=== PATIENT | female | born 1950 | race Caucasian/White ===

== ENCOUNTER 2019-04-27 06:25 | Emergency (ER) | payer OTHER, MEDICAID ==
[~2019-04-27] VITALS: Ht 160 cm; Wt 79.4 kg
[2019-04-27 06:29] VITALS: BP 154/85
--- NOTE | 2019-04-27 06:29 | NUR ---
TO BED # 12 AMBULATORY
--- NOTE | 2019-04-27 06:44 | NUR ---
PT CAME TO ER C/O PAINFUL URINATION SINCE FRIDAY. PAIN LEVEL 8/10, BURNING AND HESISTANCY. PT ALSO C/O OF SCIATIC NERVE PAIN RADIATIATING FROM LEFT FLANK DOWN TO CALF. SEEN IN [facility] LAST WEEK FOR SCIATIC PAIN. DENIES N/V/D. NO FEVER. SAFETY MEASURES IN PLACE. WILL CONTINUE TO MONITOR.
--- NOTE | 2019-04-27 07:11 | NUR ---
REPORT RECIEVED FROM MORRO ROGER. PT [id number].
[2019-04-27 07:14] LABS: APPEARANCE,URINE CLEAR (CLEAR); BILIRUBIN,URINE NEGATIVE (NEGATIVE); BLOOD, URINE TRACE-L (NEGATIVE); COLOR,URINE YELLOW (YELLOW); LEUKOCYTE ESTERASE ,URINE 1+ (NEGATIVE); NITRITE, URINE NEGATIVE (NEGATIVE); PH,URINE 6.5 (5.0-9.0); UGLUCOSE NEGATIVE (NEGATIVE)
--- NOTE | 2019-04-27 07:18 | NUR ---
dr bermudez at bedside
[2019-04-27 07:22] LABS: RBC,URINE 0-5 /HPF (0-5); WBC,URINE 0-5 /HPF (0-5)
[2019-04-27] MEDS ORDERED: cefTRIAXone 1,000 MG in LIDOCAINE 1% ***ER ONLY *** 2.1 ML IM ONE (07:25)
[2019-04-27] MEDS ORDERED: KETOROLAC 60 MG/2 ML VIAL IM ONE (07:25)
[2019-04-27] MEDS ORDERED: cefTRIAXone 1,000 MG VIAL ONE (07:42)
[2019-04-27] MEDS ORDERED: LIDOCAINE MPF 1% - 5 mL VIAL 5 ML ONE (07:44)
[2019-04-27 07:51] VITALS: BP 150/84
--- NOTE | 2019-04-27 07:51 | NUR ---
Patient discharged with v/s stable. Written and verbal after care instructions given and explained. Patient alert, oriented and verbalized understanding of instructions. Ambulatory with steady gait. All questions addressed prior to discharge. ID band removed. Patient advised to follow up with PMD. Rx of tramadol hydrochloride and levaquin given. Patient educated on indication of medication including possible reaction and side effects. Opportunity to ask questions provided and answered.
== END 2019-04-27 07:51 | disposition home or self-care (01) ==
LOC: MED 06:25
DX: N30.90 Cystitis, unspecified without hematuria (principal); I10 Essential (primary) hypertension; Z88.0 Allergy status to penicillin
CPT/HCPCS: 81001; 87086; 96372; 99283; J0696; J1885; J2001

== ENCOUNTER 2020-09-03 21:35 | Emergency (ER) | payer OTHER, MEDICAID ==
[~2020-09-03] VITALS: Ht 160 cm; Wt 83.9 kg
--- NOTE | 2020-09-03 21:40 | NUR ---
70 YO F BIB SELF WITH C/C OF VOMITTING SINCE 3PM AND ABD PAIN /, PT STATES "ALL MY STOMACH HURTS". PT DENIES TAKING MEDICATION FOR PAIN. VOMITTING IS CLEAR AND FLEM-LIKE. HAD A PERIOD OF VOMMITING WHILE IN ROOM WITH PT, ABOUT 60 CC. PT HAS NAUSEA. BOWEL SOUNDS ARE HYPOACTIVE X4 QUADS, TENDER TO TOUCH, ROUND AND NON DISTENDED. MUCUS MEMBRANES MOIST. BED IS LOCKED IN LOWEST POSITION, PT ON REHABILITATION SERVICES AIDE AND PULSE OX. SIDE RAILS X2. HX: HTN RX: LOSARTAN, AMLODIPINE, AND NITROFURIATOIN (LAST TAKEN THIS MORNING) ALLERGIES: PENICILLIN, OXYTETRACYCLINE
--- NOTE | 2020-09-03 21:56 | NUR ---
ERMD AT BEDSIDE EVALUATING PT
[2020-09-03] MEDS ORDERED: NACL 0.9% 1,000 ML IV ONE (22:00)
[2020-09-03] MEDS ORDERED: MORPHINE SULFATE 2 MG/ML SYR IVP ONE (22:00)
[2020-09-03] MEDS ORDERED: PANTOPRAZOLE 40 MG INJ VIAL IVP ONE (22:00)
[2020-09-03] MEDS ORDERED: ONDANSETRON 4 MG/2 ML VIAL IVP ONE (22:00)
--- NOTE | 2020-09-03 22:13 | NUR ---
ekg at bedside
--- NOTE | 2020-09-03 22:15 | NUR ---
LABS COLLECTED AND SENT TO LAB
[2020-09-03 22:18] LABS: BASOPHILS # (AUTO) 0.1 K/uL (0.00-0.22); BASOPHILS % (AUTO) 0.6 % (0.0-2.0); EOSINOPHILS % (AUTO) 0.3 % (0.0-4.0); HEMATOCRIT 39.1 % (36-48); HEMOGLOBIN 13.5 g/dL (12.0-16.0); LYMPHOCYTES # (AUTO) 1.2 K/uL (2.5-16.5); LYMPHOCYTES % (AUTO) 14.1 % (20.5-51.1); MEAN CORPUSCULAR HEMOGLOBIN 32 pg (27-31); MEAN CORPUSCULAR HGB CONC 34 g/dL (33-37); MEAN CORPUSCULAR VOLUME 93.3 fL (80-94); MONOCYTES # (AUTO) 0.2 K/uL (0.8-1.0); MONOCYTES % (AUTO) 2.3 % (1.7-9.3); NEUTROPHILS % (AUTO) 82.7 % (42.2-75.2); PLATELET COUNT (AUTO) 284 K/uL (140-450); RED BLOOD CELL COUNT(AUTO) 4.19 MIL/uL (4.20-5.40); RED CELL DISTRIBUTION WIDTH 15.5 % (11.6-13.7); WHITE BLOOD COUNT (AUTO) 8.5 K/uL (4.8-10.8)
[2020-09-03 22:33] LABS: ALBUMIN 3.8 g/dL (3.4-5.0); ANION GAP 17.9 (8-16); CARBON DIOXIDE 23.2 mmol/L (21-32); CREATININE 0.9 mg/dL (0.6-1.3); POTASSIUM 3.1 mmol/L (3.5-5.1); TOTAL BILIRUBIN 0.8 mg/dL (0.0-1.0)
[2020-09-03] MEDS ORDERED: CLONIDINE HYDROCHLORIDE 0.1 MG TAB PO ONE (23:00)
--- NOTE | 2020-09-03 23:15 | NUR ---
ASSISTED PT TO RR, STEADY GAIT.
--- NOTE | 2020-09-03 23:18 | NUR ---
ASSISTED PT BACK TO BED FROM RR, STEADY GAIT. CALLED RAD TO NOTIFY THAT PT IS READY.
--- NOTE | 2020-09-03 23:25 | NUR ---
TAKEN TO CT VIA WHEEL CHAIR.
--- NOTE | 2020-09-03 23:50 | NUR ---
ASSISTED PT TO RR, STEADY GAIT.
--- NOTE | 2020-09-03 23:53 | NUR ---
PT ASSISTED BACK TO BED FROM RR. PT BACK ON [employer] HEAD FORMER AND PULSE OX. BED LOCKED IN LOWEST POSITION, SIDE RAILS X2.
[2020-09-03] MEDS ORDERED: KETOROLAC 30 MG/ML VIAL IVP ONE (23:55)
[2020-09-04] MEDS ORDERED: PROCHLORPERAZINE 10 MG/2 ML VIAL IVP ONE (00:25)
--- NOTE | 2020-09-04 00:26 | NUR ---
LAB REPORTED LACTIC ACID 3.2, REPORTED TO ERMD.
--- NOTE | 2020-09-04 00:51 | NUR ---
PT GRANTED PERMISSION TO GIVE DAUGHTER MEDICAL INFO.
--- NOTE | 2020-09-04 01:00 | NUR ---
PT PLACED ON 2L NC DUE TO DESAT TO 86%
[2020-09-04 01:30] LABS: APPEARANCE,URINE CLEAR (CLEAR); BILIRUBIN,URINE NEGATIVE (NEGATIVE); BLOOD, URINE TRACE-I (NEGATIVE); COLOR,URINE YELLOW (YELLOW); LEUKOCYTE ESTERASE ,URINE NEGATIVE (NEGATIVE); NITRITE, URINE NEGATIVE (NEGATIVE); UGLUCOSE TRACE (NEGATIVE)
[2020-09-04 01:39] LABS: BARBITURATE, URINE NEGATIVE ng/ml (NEG <=200); BENZODIAZEPINE, URINE NEGATIVE ng/mL (NEG <=200); CANNABINOID, URINE POSITIVE ng/mL (NEG <=50); COCAINE, URINE NEGATIVE ng/mL (NEG <=300); OPIATE, URINE POSITIVE ng/mL (NEG <=2000); PHENCYCLIDINE SCREEN,URINE NEGATIVE ng/mL (NEG <=25)
[2020-09-04 01:44] LABS: WBC,URINE 0-5 /HPF (0-5)
--- NOTE | 2020-09-04 02:00 | NUR ---
PT ASLEEP IN BED. BED LOCKED AND IN LOWEST POSITION. EQUAL CHEST RISE AND FALL. BED LOCKED AND IN LOWEST POSITION. STRATEGIC COMMUNICATIONS MANAGER AND PULSE OX IN PLACE.
--- NOTE | 2020-09-04 02:52 | NUR ---
CELINE MADE AWARE OF POTASSIUM OF 3.1 AT DISCHARGE. STATES HE WILL WRITE A RX FOR K.
[2020-09-04 03:06] VITALS: BP 168/86
--- NOTE | 2020-09-04 03:06 | NUR ---
Patient discharged with v/s stable. Written and verbal after care instructions given and explained. Patient alert, oriented and verbalized understanding of instructions. Ambulatory with steady gait. All questions addressed prior to discharge. ID band removed. Patient advised to follow up with PMD. Rx of POTASSIUM, ZOFRAN, PROTONIX given. Patient educated on indication of medication including possible reaction and side effects. Opportunity to ask questions provided and answered.
== END 2020-09-04 03:06 | disposition home or self-care (01) ==
LOC: MED 21:35
DX: R10.30 Lower abdominal pain, unspecified (principal); R11.2 Nausea with vomiting, unspecified; R51.9 Headache, unspecified; I10 Essential (primary) hypertension; Z88.0 Allergy status to penicillin; Z88.8 Allergy status to other drugs, medicaments and biological substances
CPT/HCPCS: 36415; 36600; 74176; 80053; 80305; 81001; 82009; 82803; 83605; 83690; 84484; 85025; 93005; 96361; 96374; 96375; 99285; C9113; G0482; J0780; J1885; J2270; J2405; J7030

== ENCOUNTER 2020-11-01 09:11 | Emergency (ER) | payer OTHER, MEDICAID ==
[~2020-11-01] VITALS: Ht 165.1 cm; Wt 54.9 kg
[2020-11-01 09:18] VITALS: BP 105/77
[2020-11-01] MEDS ORDERED: ONDANSETRON 4 MG ODT PO ONE (09:30)
--- NOTE | 2020-11-01 09:30 | NUR ---
PT TO ER BED 12
--- NOTE | 2020-11-01 09:39 | NUR ---
70 Y/F PRESENTS TO ED C/O PROFUSE VOMITING/NAUSEA SINCE LAST NIGHT, PATIENT STATES SHE HAS BEEN HAVING HEARTBURN FOR THE LAST FEW DAYS. ALSO HAVING 10/10 LOW ABDOMINAL PAIN. NO DIARRHEA, PT STATES SHE IS CONSTIPATED. LAST BM WAS THIS MORNING. DENIES DYSURIA, HEMATURIA. REPORTS LOSS OF APPETITE. ABD SOFT, NON DISTENDED. BS ACTIVE X 4 PMH: HTN, ARTHRITIS ALLERGIES: PENICILLINS OXYTETRACYCLINE
--- NOTE | 2020-11-01 09:39 | NUR ---
DR. MAURER AT BEDSIDE.
[2020-11-01] MEDS ORDERED: KETOROLAC 60 MG/2 ML VIAL IM ONE (09:45)
[2020-11-01] MEDS ORDERED: NACL 0.9% 1,000 ML IV ONE (10:35)
[2020-11-01] MEDS ORDERED: ONDANSETRON 4 MG/2 ML VIAL IVP ONE (10:35)
[2020-11-01] MEDS ORDERED: MORPHINE SULFATE 4 MG/ML SYR IVP ONE (11:10)
[2020-11-01 13:40] VITALS: BP 108/52
--- NOTE | 2020-11-01 13:41 | NUR ---
Patient discharged with v/s stable. Written and verbal after care instructions given and explained. Patient alert, oriented and verbalized understanding of instructions. Ambulatory with steady gait. All questions addressed prior to discharge. ID band removed. Patient advised to follow up with PMD. Rx of NORCO, MOTRIN, ZOFRAN given. Patient educated on indication of medication including possible reaction and side effects. Opportunity to ask questions provided and answered.
--- NOTE | 2020-11-02 10:19 | NUR ---
LATE ENTRY -- NS INFUSION COMPLETED AT 7319 11/01
== END 2020-11-01 13:41 | disposition home or self-care (01) ==
LOC: MED 09:11
DX: R10.30 Lower abdominal pain, unspecified (principal); R11.2 Nausea with vomiting, unspecified; I10 Essential (primary) hypertension; Z88.0 Allergy status to penicillin; Z88.1 Allergy status to other antibiotic agents
CPT/HCPCS: 81002; 96361; 96372; 96374; 96375; 99284; J1885; J2270; J2405; J7030; Q0162

== ENCOUNTER 2020-11-03 13:05 | Emergency (ER) | payer OTHER, MEDICAID ==
--- NOTE | 2020-11-03 13:17 | NUR ---
PATIENT LEFT WITHOUT BEING TRIAGED. NO FURTHER CARE PROVIDED FOR PATIENT.
== END 2020-11-03 13:17 | disposition left against medical advice (07) ==
LOC: MED 13:05
DX: R11.2 Nausea with vomiting, unspecified (principal); Z53.21 Procedure and treatment not carried out due to patient leaving prior to being seen by health care provider

== ENCOUNTER 2020-11-03 17:09 | Emergency (ER) | payer OTHER, MEDICAID ==
[~2020-11-03] VITALS: Ht 160 cm; Wt 77.1 kg
[2020-11-03 17:28] VITALS: BP 137/65
--- NOTE | 2020-11-03 17:30 | NUR ---
C/O VAGINAL BLEEDING, LOWER ABDOMINAL PAIN X YESTERDAY. SEEN HERE 2 DAYS AGO FOR N/V & ABDOMINAL PAIN . PMH: HTN,ARTHRITIS, PARTIAL HYSTERECTOMY
--- NOTE | 2020-11-03 17:34 | NUR ---
SIMONE. HANDED ON URINE CUP.
[2020-11-03 18:21] LABS: BASOPHILS # (AUTO) 0.1 K/uL (0.00-0.22); BASOPHILS % (AUTO) 0.7 % (0.0-2.0); EOSINOPHILS # (AUTO) 0.1 K/uL (0-0.4); EOSINOPHILS % (AUTO) 1.1 % (0.0-4.0); HEMATOCRIT 35.7 % (36-48); HEMOGLOBIN 12.2 g/dL (12.0-16.0); LYMPHOCYTES # (AUTO) 2.3 K/uL (2.5-16.5); LYMPHOCYTES % (AUTO) 26.7 % (20.5-51.1); MEAN CORPUSCULAR HEMOGLOBIN 33 pg (27-31); MEAN CORPUSCULAR HGB CONC 34 g/dL (33-37); MEAN CORPUSCULAR VOLUME 97.1 fL (80-94); MONOCYTES # (AUTO) 0.6 K/uL (0.8-1.0); MONOCYTES % (AUTO) 6.7 % (1.7-9.3); NEUTROPHILS # (AUTO) 5.6 K/uL (1.8-7.7); NEUTROPHILS % (AUTO) 64.8 % (42.2-75.2); PLATELET COUNT (AUTO) 360 K/uL (140-450); RED BLOOD CELL COUNT(AUTO) 3.68 MIL/uL (4.20-5.40); RED CELL DISTRIBUTION WIDTH 13.6 % (11.6-13.7); WHITE BLOOD COUNT (AUTO) 8.7 K/uL (4.8-10.8)
[2020-11-03 18:35] LABS: ALBUMIN 3.2 g/dL (3.4-5.0); ANION GAP 13.8 (8-16); CREATININE 1.3 mg/dL (0.6-1.3); TOTAL BILIRUBIN 0.9 mg/dL (0.0-1.0)
--- NOTE | 2020-11-03 18:38 | NUR ---
PT CAN'T PROVIDE URINE AT THIS TIME.
[2020-11-03 18:49] LABS: POTASSIUM 2.8 mmol/L (3.5-5.1)
--- NOTE | 2020-11-03 19:45 | NUR ---
ALL RESULTS BACK AND NOTED BY ERMD AND FOR D/C
[2020-11-03 20:05] VITALS: BP 137/65
--- NOTE | 2020-11-03 20:05 | NUR ---
Patient discharged with v/s stable. Written and verbal after care instructions given and explained. Patient alert, oriented and verbalized understanding of instructions. Ambulatory with steady gait. All questions addressed prior to discharge. ID band removed. Patient advised to follow up with PMD. Rx of DEBBY HESS, given. Patient educated on indication of medication including possible reaction and side effects. Opportunity to ask questions provided and answered.
== END 2020-11-03 20:05 | disposition home or self-care (01) ==
LOC: MED 17:09
DX: N95.0 Postmenopausal bleeding (principal); E87.6 Hypokalemia; I10 Essential (primary) hypertension; Z88.0 Allergy status to penicillin; Z88.1 Allergy status to other antibiotic agents
CPT/HCPCS: 36415; 80053; 81002; 83690; 85025; 99284

== ENCOUNTER 2021-06-30 00:09 | Emergency (ER) | payer OTHER, MEDICAID, SELFPAY ==
[~2021-06-30] VITALS: Ht 152.4 cm; Wt 81.2 kg
[2021-06-30 00:25] VITALS: BP 157/90
--- NOTE | 2021-06-30 00:28 | NUR ---
TO LOBBY A/W BED AMBULATORY
--- NOTE | 2021-06-30 00:41 | NUR ---
TO ER BED 8
[2021-06-30] MEDS ORDERED: KETOROLAC 30 MG/ML VIAL IVP ONE ×2 (01:00→04:40)
--- NOTE | 2021-06-30 01:05 | NUR ---
71 YO/F BIB SELF W C/O GENERALIZED ABDOMINAL SHARP PAIN, INTERMITTENT SINCE June S/P GALL BLADDER SURGERY THAT WORSENED YESTERDAY. PATIENT ALSO REPORTS N/V X2DAYS AND MILD CONSTIPATION. LBM THIS MORNING. REPORTS EXPERIENCING DIZZYNESS YESTERDAY NONE TODAY. REPORTS SOB DENIES CHEST PAIN. LUNG SOUNDS CLEAR, BREATHING EVEN AND UNLABORED, BOWEL SOUNDS PRESENT. CONNECTED TO MONITOR W VSS. PATIENT LAYING IN BED LOCKED IN LOWEST POSITION, X2 SIDERAILS UP FOR PATIENT SAFETY. NAD NOTED, WILL CONTINUE TO MONITOR. PMH:HTN, GALL BLADDER REMOVAL June ALLERGIES: PENICILLIN
[2021-06-30 01:26] LABS: BASOPHILS % (AUTO) 0.3 % (0.0-2.0); EOSINOPHILS # (AUTO) 0.1 K/uL (0-0.4); EOSINOPHILS % (AUTO) 1.5 % (0.0-4.0); HEMOGLOBIN 11.8 g/dL (12.0-16.0); LYMPHOCYTES # (AUTO) 1.9 K/uL (2.5-16.5); LYMPHOCYTES % (AUTO) 22.4 % (20.5-51.1); MEAN CORPUSCULAR HEMOGLOBIN 33 pg (27-31); MEAN CORPUSCULAR HGB CONC 34 g/dL (33-37); MEAN CORPUSCULAR VOLUME 98.7 fL (80-94); MONOCYTES # (AUTO) 0.5 K/uL (0.8-1.0); MONOCYTES % (AUTO) 5.9 % (1.7-9.3); NEUTROPHILS % (AUTO) 69.9 % (42.2-75.2); PLATELET COUNT (AUTO) 293 K/uL (140-450); RED BLOOD CELL COUNT(AUTO) 3.55 MIL/uL (4.20-5.40); RED CELL DISTRIBUTION WIDTH 14.2 % (11.6-13.7); WHITE BLOOD COUNT (AUTO) 8.6 K/uL (4.8-10.8)
[2021-06-30 01:43] LABS: ALBUMIN 3.3 g/dL (3.4-5.0); ANION GAP 12.7 (8-16); CARBON DIOXIDE 25.3 mmol/L (21-32); CREATININE 0.8 mg/dL (0.6-1.3); TOTAL BILIRUBIN 0.5 mg/dL (0.0-1.0)
--- NOTE | 2021-06-30 02:05 | NUR ---
PATIENT LAYING IN BED W EYES CLOSED. BED LOCKED IN LOWEST POSITION X2 SIDE RAILS UP FOR PATIENT SAFETY. BREATHING EVEN AND UNLABORED. CONNECTED TO MONITOR, NAD NOTED, WILL CONTINUE TO MONITOR.
[2021-06-30 02:48] LABS: APPEARANCE,URINE CLEAR (CLEAR); BILIRUBIN,URINE NEGATIVE (NEGATIVE); BLOOD, URINE NEGATIVE (NEGATIVE); COLOR,URINE YELLOW (YELLOW); LEUKOCYTE ESTERASE ,URINE NEGATIVE (NEGATIVE); NITRITE, URINE NEGATIVE (NEGATIVE); UGLUCOSE NEGATIVE (NEGATIVE)
[2021-06-30 03:00] LABS: RBC,URINE 0-5 /HPF (0-5)
--- NOTE | 2021-06-30 04:10 | NUR ---
PATIENT AMBULATED TO BATHROOM W STEADY GAIT.
--- NOTE | 2021-06-30 04:30 | NUR ---
PATIENT W C/O ABDOMINAL PAIN AND NAUSEA, ERMD MADE AWARE.
[2021-06-30] MEDS ORDERED: ONDANSETRON 4 MG/2 ML VIAL IVP ONE (04:40)
[2021-06-30 05:32] VITALS: BP 175/70
--- NOTE | 2021-06-30 05:32 | NUR ---
Patient discharged with v/s stable. Written and verbal after care instructions given and explained. Patient verbalized understanding. Ambulatory with steady gait. All questions addressed prior to discharge. Advised to follow up with PMD.
[2021-07-01] MEDS ORDERED: LOSA50TA66 PO (02:44)
== END 2021-06-30 05:32 | disposition home or self-care (01) ==
LOC: MED 00:09
DX: R10.30 Lower abdominal pain, unspecified (principal); Z20.822 Contact with and (suspected) exposure to COVID-19; I10 Essential (primary) hypertension; Z90.49 Acquired absence of other specified parts of digestive tract; Z98.890 Other specified postprocedural states; Z88.0 Allergy status to penicillin; Z88.8 Allergy status to other drugs, medicaments and biological substances
CPT/HCPCS: 36415; 74176; 80053; 81001; 83690; 85025; 87040; 87086; 87426; 96374; 96375; 96376; 99284; J1885; J2405

== ENCOUNTER 2021-06-30 23:52 | Emergency (ER) | payer OTHER, MEDICAID, SELFPAY ==
[~2021-06-30] VITALS: Ht 160 cm; Wt 81.2 kg
[2021-07-01 00:01] VITALS: BP 161/100
--- NOTE | 2021-07-01 00:01 | NUR ---
TO BED AMBULATORY
--- NOTE | 2021-07-01 00:12 | NUR ---
BIB WHEELCHAIR TO ER BED 4
--- NOTE | 2021-07-01 00:30 | NUR ---
SEE COMEPLETE ASSESSMENT FOR FUTHER DETAILS.
--- NOTE | 2021-07-01 00:31 | NUR ---
ERMD AT BEDSIDE FOR MEDICAL EVALUATION.
[2021-07-01] MEDS ORDERED: ONDANSETRON 4 MG/2 ML VIAL IVP ONE ×2 (00:40→03:15)
[2021-07-01] MEDS ORDERED: MORPHINE SULFATE 4 MG/ML SYR IVP ONE ×2 (00:40→03:15)
[2021-07-01] MEDS ORDERED: NACL 0.9% 1,000 ML IV ONE (00:45)
--- NOTE | 2021-07-01 00:57 | NUR ---
PATIENT TAKEN TO CT/RAD VIA GURNEY.
[2021-07-01 01:11] LABS: BASOPHILS # (AUTO) 0.1 K/uL (0.00-0.22); BASOPHILS % (AUTO) 1.2 % (0.0-2.0); EOSINOPHILS # (AUTO) 0.2 K/uL (0-0.4); EOSINOPHILS % (AUTO) 1.6 % (0.0-4.0); HEMATOCRIT 39.2 % (36-48); HEMOGLOBIN 13.1 g/dL (12.0-16.0); LYMPHOCYTES # (AUTO) 3.1 K/uL (2.5-16.5); LYMPHOCYTES % (AUTO) 26.7 % (20.5-51.1); MEAN CORPUSCULAR HEMOGLOBIN 33 pg (27-31); MEAN CORPUSCULAR HGB CONC 34 g/dL (33-37); MONOCYTES # (AUTO) 0.8 K/uL (0.8-1.0); MONOCYTES % (AUTO) 6.5 % (1.7-9.3); NEUTROPHILS # (AUTO) 7.4 K/uL (1.8-7.7); PLATELET COUNT (AUTO) 331 K/uL (140-450); RED BLOOD CELL COUNT(AUTO) 3.96 MIL/uL (4.20-5.40); RED CELL DISTRIBUTION WIDTH 14.3 % (11.6-13.7); WHITE BLOOD COUNT (AUTO) 11.6 K/uL (4.8-10.8)
[2021-07-01 01:34] LABS: ALBUMIN 3.5 g/dL (3.4-5.0); CARBON DIOXIDE 22.4 mmol/L (21-32); CREATININE 0.9 mg/dL (0.6-1.3); POTASSIUM 4.4 mmol/L (3.5-5.1); TOTAL BILIRUBIN 0.7 mg/dL (0.0-1.0)
--- NOTE | 2021-07-01 02:02 | NUR ---
PATIENT AMBULATED TO RESTROOM WITH STEADY GAIT.
[2021-07-01] MEDS ORDERED: LOSA50TA66 PO (02:44)
[2021-07-01] MEDS ORDERED: cefTRIAXone 2,000 MG in DEXTROSE 5% 100 ML IV ONE (02:45)
[2021-07-01] MEDS ORDERED: metroNIDAZOLE 500 MG/NS PREMIX 100 ML IV ONE (02:45)
--- NOTE | 2021-07-01 03:06 | NUR ---
PATIENT AMBULATED TO BED 4 FROM RESTROOM. PATIENT PLACED ON CARIDAC MONITOR. VSS.
[2021-07-01] MEDS ORDERED: cefTRIAXone 2,000 MG VIAL ONE (03:14)
[2021-07-01] MEDS ORDERED: ONDANSETRON 4 MG/2 ML VIAL ONE (03:15)
[2021-07-01] MEDS ORDERED: MORPHINE SULFATE 4 MG/ML SYR ONE (03:15)
--- NOTE | 2021-07-01 05:50 | NUR ---
Patient to be transferred to [facility]. Is being transferred due to INSURANCE. Receiving facility has accepting physician and available space. ER physician has signed transfer form. Patient or responsible green party has agreed to transfer and signed form. Patient belongings inventoried and will be sent with patient. Copy of nursing notes, lab reports, EKG, Physicians Orders and X-rays to be sent with patient. Report called to ASHLEY at receiving facility. [facility] ambulance service has been called for transfer. ETA is 10 MIN.
--- NOTE | 2021-07-01 06:08 | NUR ---
[facility] CONTACT: [phone], PATIENT WILL BE TRANSFERED TO ROOM 2146. SPOKE WITH MARCEL ROGER.
--- NOTE | 2021-07-01 06:18 | NUR ---
[facility] AT BEDSIDE FOR TRANSPORT TO [facility].
[2021-07-01 06:25] VITALS: BP 135/62
--- NOTE | 2021-07-01 06:25 | NUR ---
[facility] TRANSPORTED PATIENT TO [facility].
== END 2021-07-01 06:25 | disposition home or self-care (01) ==
LOC: MED 23:52
DX: K57.32 Diverticulitis of large intestine without perforation or abscess without bleeding (principal); R11.2 Nausea with vomiting, unspecified; I10 Essential (primary) hypertension; Z90.49 Acquired absence of other specified parts of digestive tract
CPT/HCPCS: 36415; 71045; 74176; 80053; 83605; 83690; 84484; 85025; 93005; 96361; 96365; 96367; 96375; 96376; 99285; J0696; J2270; J2405; J3490; J7030; Q0092

== ENCOUNTER 2021-07-29 15:33 | Emergency (ER) | payer OTHER, MEDICAID ==
[~2021-07-29] VITALS: Ht 160 cm; Wt 76.7 kg
[~2021-07-29 15:33] MED LIST: LOSA50TA66 PO
[2021-07-29 15:38] VITALS: BP 179/95
--- NOTE | 2021-07-29 15:46 | NUR ---
PATIENT AMBULATED WITH STEADY GAIT TO BED 3.
--- NOTE | 2021-07-29 15:50 | NUR ---
DR HANSON AT BEDSIDE EXAMINING PT
[2021-07-29] MEDS ORDERED: ATA25 PO (16:09)
[2021-07-29] MEDS ORDERED: BENC TP (16:09)
[2021-07-29] MEDS ORDERED: DIPH1CRE19 TP (16:09)
[2021-07-29] MEDS ORDERED: MELA5SGL PO (16:09)
[2021-07-29 16:14] VITALS: BP 179/95
--- NOTE | 2021-07-29 16:14 | NUR ---
NO NURSING INTERVENTIONS IMPLEMENTED
--- NOTE | 2021-07-29 16:14 | NUR ---
Patient discharged with v/s stable. Written and verbal after care instructions given and explained. Patient alert, oriented and verbalized understanding of instructions. Ambulatory with steady gait. All questions addressed prior to discharge. ID band removed. Patient advised to follow up with PMD. Rx of ATARAX, BENADRYL ITCH CREAM, AND MELATONIN given. Patient educated on indication of medication including possible reaction and side effects. Opportunity to ask questions provided and answered.
== END 2021-07-29 16:14 | disposition home or self-care (01) ==
LOC: MED 15:33
DX: L30.9 Dermatitis, unspecified (principal)
CPT/HCPCS: 99283

== ENCOUNTER 2024-07-03 07:48 | Emergency (ER) | payer BC, MEDICAID ==
[~2024-07-03] VITALS: Ht 157.5 cm; Wt 72.6 kg
[~2024-07-03 07:48] MED LIST changes: +ATA25 PO; +BENC TP; +DIPH1CRE19 TP; +MELA5SGL PO
[2024-07-03 08:04] VITALS: BP 133/111; PULSE 75; RESP 18; TEMP 97.3; O2SAT 99
[2024-07-03] MEDS ORDERED: IBUP-2213 PO (08:47)
[2024-07-03] MEDS: KETOROLAC 60 MG/2 ML VIAL IM ONE (08:48)
--- NOTE | 2024-07-03 08:59 | NUR ---
Patient discharged with v/s stable. Written and verbal after care instructions given and explained. Patient alert, oriented and verbalized understanding of instructions. Ambulatory with steady gait. All questions addressed prior to discharge. ID band removed. Patient advised to follow up with PMD. Rx SENT TO PHARMACY. Patient educated on indication of medication including possible reaction and side effects. Opportunity to ask questions provided and answered.
== END 2024-07-03 08:59 | disposition home or self-care (01) ==
LOC: MED 07:48
DX: M25.561 Pain in right knee (principal); M25.511 Pain in right shoulder; M25.521 Pain in right elbow; M25.562 Pain in left knee; M25.512 Pain in left shoulder; M25.522 Pain in left elbow; M25.531 Pain in right wrist; M25.532 Pain in left wrist; M79.641 Pain in right hand; M79.642 Pain in left hand; R21 Rash and other nonspecific skin eruption; J45.909 Unspecified asthma, uncomplicated; I10 Essential (primary) hypertension; Z90.49 Acquired absence of other specified parts of digestive tract; Z98.890 Other specified postprocedural states; Z79.899 Other long term (current) drug therapy; Z88.0 Allergy status to penicillin; Z88.1 Allergy status to other antibiotic agents
CPT/HCPCS: 96372; 99283; J1885